=== PATIENT | female | born 1965 | race Caucasian/White ===

== ENCOUNTER 2021-10-27 20:17 | Emergency (ER) | payer MEDICAID ==
[~2021-10-27] VITALS: Ht 157.5 cm; Wt 60.5 kg
[2021-10-27 20:59] VITALS: BP 119/77
[2021-10-27 21:41] LABS: BASOPHILS # (AUTO) 0.1 X10'3 (0-0.2); BASOPHILS % (AUTO) 0.6 % (0-1); EOSINOPHILS # (AUTO) 0.1 X10'3 (0-0.9); EOSINOPHILS % (AUTO) 0.6 % (0-6); HEMATOCRIT 41.6 % (35.0-45.0); LYMPHOCYTES # (AUTO) 2.3 X10'3 (1.1-4.8); LYMPHOCYTES % (AUTO) 25.1 % (21-51); MEAN CORPUSCULAR HEMOGLOBIN 36.1 PG (27.0-31.0); MEAN CORPUSCULAR HGB CONC 33.6 g/dL (33.0-36.5); MEAN CORPUSCULAR VOLUME 107.4 FL (78-98); MEAN PLATELET VOLUME 8.4 FL (7.4-10.4); MONOCYTES % (AUTO) 10.9 % (2-12); NEUTROPHILS # (AUTO) 5.8 X10'3 (1.8-7.7); NEUTROPHILS % (AUTO) 62.8 % (42-75); PLATELET COUNT 360 X10'3 (140-440); RED BLOOD COUNT 3.88 X10'6 (4.20-5.60); RED CELL DISTRIBUTION WIDTH 14.4 % (11.5-14.5); WHITE BLOOD COUNT 9.2 X10'3 (4.5-11.0)
[2021-10-27 21:55] LABS: ALANINE AMINOTRANSFERASE 26 U/L (12-78); ALBUMIN 3.2 G/DL (3.4-5.0); ALBUMIN/GLOBULIN RATIO 0.7 (1.1-1.5); ALKALINE PHOSPHATASE 80 IU/L (46-116); ANION GAP 9 (8-16); ASPARTATE AMINO TRANSFERASE 29 U/L (10-37); BILIRUBIN,TOTAL 0.1 MG/DL (0.1-1.0); BLOOD UREA NITROGEN 7 MG/DL (7-18); CALCIUM 8.7 MG/DL (8.5-10.1); CHLORIDE 100 MMOL/L (99-107); GLUCOSE 112 MG/DL (70-104); POTASSIUM 3.2 MMOL/L (3.5-5.1); SODIUM 138 MMOL/L (135-145); TOTAL CARBON DIOXIDE 28.7 MMOL/L (24-32); eGFR 87 ML/MIN
== END 2021-10-28 00:35 | disposition left against medical advice (07) ==
LOC: ER 20:18
DX: R51.9 Headache, unspecified (principal); Z53.21 Procedure and treatment not carried out due to patient leaving prior to being seen by health care provider; W19.XXXA Unspecified fall, initial encounter; Y93.89 Activity, other specified; Y92.89 Other specified places as the place of occurrence of the external cause
CPT/HCPCS: 36415; 80053; 84484; 85025; 93005

== ENCOUNTER 2024-06-15 07:34 | Emergency (ER) | payer MEDICAID ==
[~2024-06-15] VITALS: Ht 157.5 cm; Wt 64.8 kg
[2024-06-15 07:52] VITALS: BP 112/85; O2SAT 98
--- NOTE | 2024-06-15 08:26 | RADIOLOGY REPORT ---
DI ANKLE, COMPLETE(3VW MIN), INDICATION: ANKLE PAIN TECHNICAL DATA:Frontal , oblique and lateral views were obtained of the right ankle. COMPARISON: None FINDINGS: There is an old healed distal fibula fracture. Joint spaces are maintained. Alignment is anatomic. Soft tissues are within normal limit. IMPRESSION: No acute fracture or dislocation of the right ankle.
--- NOTE | 2024-06-15 08:36 | Physician Documentation ---
History of Present Illness ~ Chief Complaint: Ankle pain Stated Complaint: ANKLE PAIN Time Seen by MD: 08:27 HPI Patient is seen today with complaints of having rolled her right ankle. Patient states she has previously hurt this ankle but did not seek medical attention at that time. Has no other concern or complaint at this time. She states she has trouble bearing weight on the right ankle because of pain. She states this happened a couple of days ago. Medication Reconciliation Allergies: Coded Allergies: No Known Allergies (Unverified , 06/15/24) Review of Systems Constitutional: Denies: chills, fever, weakness Eyes: Denies: pain, blurred vision ENT: Denies: ear pain, nose pain, throat pain, mouth pain Respiratory: Denies: cough, shortness of breath Cardiovascular: Denies: chest pain, palpitations Gastrointestinal: Denies: abdominal pain, nausea, vomiting Genitourinary: Denies: burning, dysuria Female Genitalia: Denies: vaginal discharge, pelvic pain Neurological: Denies: headache, dizziness Musculoskeletal: Denies: pain, swelling Integumentary: Denies: rash, lesions Allergic/Immunologic: Denies: hives, itching Hematologic/Lymphatic: Denies: no symptoms reported Psychiatric: Denies: depression, anxiety Physical Exam Vital Signs: Heart Rate: 100, Respiratory Rate: 18, BP: 112/85, Pulse Oximetry: 98, Weight: 64.850 Physical Exam General: Awake and Alert, no acute distress. HEENT: Conjunctiva pink, Sclera clear, Mucus Membranes moist. Neck: Supple without masses and tenderness. Resp: Unlabored. Lungs clear to auscultation bilaterally. Heart: Regular Rate and rhythm, normal S1 and S2 without murmur, rub or gallop. Musculoskeletal: Patient on exam does have significant swelling of the right ankle and significant tenderness to palpation of the lateral malleoli and lat eral anterior ankle/foot. Patient has visible ecchymosis and swelling. Patient is neurovascularly intact distally. Motor function is intact distally. Extremities: No cyanosis,clubbing or edema. Skin: Warm and Dry. Progress Results/Orders Results/Orders Completed Orders - WERO FAYE PAC Hydrocodone/Apap 5/325mg Tab ([place] 532 (06/15/24 09:35) Vital Signs 06/15/24 07:52 Pulse 100 Resp 18 B/P (MAP) 112/85 Pulse Ox 98 EKG/XRAY/CT/US/VASC/MRI Bone/Soft Tissue X-Ray (Ext.) : Additional Comment X-ray interpreted by myself today shows no sign of acute fracture, there is visible evidence of an older healed fracture of the distal fibula. There are no osteolytic or blastic lesions. Joint spaces are well-maintained. DIAGNOSTIC RADIOLOGY Patient: KEN BOSCH Medical Record: [id number] [facility] : 1965, Age: 59 Sex: Female Location: ER Patient Status: [facility] ER Service Date/Time: 06/15/24755 Ordering Physician: PAPO COBOS MD Exam: ANKLE, COMPLETE(3VW MIN) DI ANKLE, COMPLETE(3VW MIN), INDICATION: ANKLE PAIN TECHNICAL DATA:Frontal , oblique and lateral views were obtained of the right ankle. COMPARISON: None FINDINGS: There is an old healed distal fibula fracture. Joint spaces are maintained. Alignment is anatomic. Soft tissues are within normal limit. IMPRESSION: No acute fracture or dislocation of the right ankle. Electronically Signed by:RUSSELL BERRY MD Date & Time: 06/15/24823 Dictated by: RUSSELL BERRY MD Dictation date and time: 06/15/24823 Primary Care Provider: NO PRIMARY CARE PROVIDER cc: PAPO COBOS MD ~ Medical Decision Making Findings Patient is seen today with complaints of having rolled her right ankle. Patient states she has previously hurt this ankle but did not seek medical attention at that time. Has no other concern or complaint at this time. She states she has trouble bearing weight on the right ankle because of pain. She states this happened a couple of days ago. X-ray taken of right ankle shows no sign of acute fracture. Patient does have signs of old fracture of the distal fibula of the right ankle that is now well healed. Patient was given a [place] 5/325 mg tablet for pain in the ED today. Pr escription of [place] 5/325 mg, one tab by mouth 3 times a day sent to patient pharmacy. Patient given a walker to help with ambulation. Patient will be toe- touch weight-bearing. Patient will rest, ice, compress and, elevate off and on over every 20 minutes for the next few days. Patient will follow up with primary care in 2-5 days if no better as needed sooner and get referral to physical therapy. Return to ED with any worsening, concerning or changing symptoms. Patient also given an ankle velcro splint. Departure Disposition: HOME / SELF CARE / HOMELESS Impression: Primary Impression: Sprain of ankle Condition: Improved Discharge Instructions: Ankle Sprain Additional Instructions: X-ray taken of right ankle shows no sign of acute fracture. Patient does have signs of old fracture of the distal fibula of the right ankle that is now well healed. Patient was given a [place] 5/325 mg tablet for pain in the ED today. Prescription of [place] 5/325 mg, one tab by mouth 3 times a day sent to patient pharmacy. Patient given a walker to help with ambulation. Patient will be toe- touch weight-bearing. Patient will rest, ice, compress and, elevate off and on over every 20 minutes for the next few days. Patient will follow up with primary care in 2-5 days if no better as needed sooner and get referral to physical therapy. Return to ED with any worsening, concerning or changing symptoms. Patient also given an ankle velcro splint. Referrals: NO PRIMARY CARE PROVIDER (PCP) Prescriptions Hydrocodone Bit/Acetaminophen 5/325 MG ([place] 5/325 MG) 5 Mg/325 Mg Tablet 1-2 TAB PO Q6H PRN for pain for 2 Days, #30 TAB Prov: WERO FAYE 06/15/24 Signature Scribe Signature: No scribe Attestation: No scribe WERO FAYE June 15, 2024 08:36
[2024-06-15] MEDS: HYDROcodone/acetaminophen 5mg/325mg tablet PO ONE (09:35)
[2024-06-15] MEDS ORDERED: HYDR-3965 PO (10:12)
[2024-06-15 10:37] VITALS: PULSE 76; RESP 18
== END 2024-06-15 11:00 | disposition home or self-care (01) ==
LOC: ER 07:34
DX: S93.491A Sprain of other ligament of right ankle, initial encounter (principal); X58.XXXA Exposure to other specified factors, initial encounter; Y93.89 Activity, other specified; Y92.89 Other specified places as the place of occurrence of the external cause; Y99.8 Other external cause status
CPT/HCPCS: 29125; 29515; 73610; 99284; A6449